=== PATIENT | male | born 1990 | race African-American/Black ===

== ENCOUNTER 2024-10-23 01:28 | Emergency (ER) | payer OTHER ==
[~2024-10-23] VITALS: Ht 193 cm; Wt 74.8 kg
[2024-10-23] MEDS ORDERED: 0.9 % SODIUM CHLORIDE 1,000 ML IV STA (02:36)
[2024-10-23] MEDS ORDERED: MORPHINE SULFATE 4 MG/ML VIAL IV STA (02:37)
[2024-10-23] MEDS ORDERED: FAMOtidine 10 MG/ML (4ML VIAL) IV PUSH STA (02:37)
[2024-10-23] MEDS ORDERED: HYOSCYAMINE SULFATE 0.125 MG TAB.SUBL ONE (02:41)
[2024-10-23] MEDS ORDERED: FAMOTIDINE/PF 20 MG/2 ML VIAL ONE (02:42)
[2024-10-23] MEDS ORDERED: HYOSCYAMINE SULFATE 0.125 MG TAB.SUBL SL ONE (02:45)
[2024-10-23 03:44] LABS: BASO % 0.7 % (0.1-1.2); EOS # 0.01 (0.04-0.54); EOS % 0.2 % (0.7-7.0); LYMPH # 2.20 (1.18-3.74); LYMPH % 49.2 % (19.3-53.1); MEAN PLATELET VOLUME 9.80 fl (9.4-12.4); MONO # 0.29 (0.24-0.82); MONO % 6.5 % (4.7-12.5); NEUT # 1.93 (1.56-6.13); NEUT % 43.2 % (34.0-71.1); RED CELL DISTRIBUTION WIDTH 11.9 % (11.6-14.4)
[2024-10-23 04:07] LABS: INR 1.05
[2024-10-23 04:11] LABS: ALT/SGPT 14.0 U/L (12-78); AST/SGOT 10.0 U/L (15-37); BILIRUBIN TOTAL 1.05 mg/dL (0.3-1.2); BILIRUBIN,CONJUGATED 0.27 mg/dL (0.0-0.2); BUN CREA RATIO 8.0 (7.0-25.0); CREATININE SERUM 0.88 mg/dL (0.70-1.30); GFR 98.55; GLOBULINA 4.2 G/DL (2.4-3.5); GLUCOSE FASTING 99.0 mg/dL (65-100); OSMOLALITY SERUM 274.0 MOSM/KG (275-295)
== END 2024-10-23 09:08 | disposition home or self-care (01) ==
LOC: ER 01:28
DX: K29.70 Gastritis, unspecified, without bleeding (principal); R10.9 Unspecified abdominal pain; R11.10 Vomiting, unspecified